=== PATIENT | female | born 1960 | race Caucasian/White ===

== ENCOUNTER 2023-12-24 12:23 | Outpatient (CLI) | payer MEDICARE, MEDICAID | END 2023-12-24 23:59 | disposition critical access hospital (66) | LOC: EMS 12:23 | DX: R07.89 Other chest pain (principal); R45.89 Other symptoms and signs involving emotional state; R03.0 Elevated blood-pressure reading, without diagnosis of hypertension | CPT/HCPCS: A0425; A0429 ==

== ENCOUNTER 2023-12-24 12:45 | Emergency (ER) | payer MEDICARE, MEDICAID ==
--- NOTE | 2023-12-24 13:18 | ED Physician Documentation ---
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 She is being moved to different apt so needs to pack, etc. Very anxious about it and developed some chst tightness and headache. Noted BP was elevated. She does not check it reguarly.) Quality: Pressure, Tightness Location: Substernal Radiation: No: Jaw, Neck Improved by: Rest Worsened by: No: Inspiration, Movement, Palpation Associated symptoms: Other (some frontal headache as well.) Similar symptoms before: No diagnosis (has headache at times when upset. No prior chest pressure.) PD PAST MEDICAL HISTORY - Past Medical History Past Medical History: Yes Cardiovascular: None Respiratory: None Neuro: None Endocrine/Autoimmune: None Psych: Depression, Anxiety, Bipolar disorder - Past Surgical History Past Surgical History: No - Present Medications Home Medications: Ambulatory Orders Medication Instructions Recorded Confirmed Carisoprodol [Soma] 350 mg PO TID 12/24/23 12/24/23 Ibuprofen [Motrin] 1 tablet PO Q8H 12/24/23 12/24/23 Losartan [Cozaar] 50 mg PO DAILY #30 tablet 12/24/23 Sertraline HCl 100 mg PO BID 12/24/23 12/24/23 Trazodone HCl 100 mg PO HS 12/24/23 12/24/23 lamoTRIgine [Lamictal Xr] 300 mg PO HS 12/24/23 12/24/23 oxyCODONE [Roxicodone] 5 mg PO QID 12/24/23 12/24/23 - Allergies Allergies/Adverse Reactions: Allergies Allergy/AdvReac Type Severity Reaction Status Date / Time erythromycin base Allergy Hives Verified 12/24/23 12:52 morphine AdvReac Nausea Verified 12/24/23 12:52 - Social History Does the pt smoke?: Yes Smoking Status: Light tobacco smoker Does the pt drink ETOH?: No Does the pt have substance abuse?: No - Immunizations Immunizations are current?: Yes PD ED PE NORMAL - Vitals Vital signs reviewed: Yes - General General: Alert and oriented X 3, No acute distress, Well developed/nourished - Cardiac Cardiac: RRR, No murmur - Respiratory Respiratory: No respiratory distress, Clear bilaterally - Abdomen Abdomen: Soft, Non tender - Derm Derm: Normal color, Warm and dry - Extremities Extremities: No edema, No calf tenderness / cord - Neuro Neuro: Alert and oriented X 3, 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 Relevant findings are: Rate: Rate (enter#) (62) Rhythm: NSR [place]: Normal Intervals: Normal [place] QRS: Normal Ischemia: Normal ST segments. No: ST elevation c/w ischemia, ST depression - Labs Labs: Laboratory Tests 12/24/23 12/24/23 14:38 14:38 WBC 5.5 RBC 3.76 L Hgb 11.0 L Hct 34.7 L MCV 92.3 MCH 29.3 MCHC 31.7 L RDW 13.2 Plt Count 262 MPV 9.1 Neut # (Auto) 3.5 Lymph # (Auto) 1.6 [place] # (Auto) 0.3 Eos # (Auto) 0.1 Baso # (Auto) 0.1 Absolute Nucleated RBC 0.00 Nucleated RBC % 0.0 Sodium 138 Potassium 3.8 Chloride 102 Carbon Dioxide 30 Anion Gap 6.0 BUN 13 Creatinine 0.8 Estimated GFR (MDRD) 72 L Glucose 88 Calcium 9.7 Magnesium 1.7 Total Bilirubin 0.3 AST 19 ALT 13 Alkaline Phosphatase 73 Troponin I High Sens 5.2 Total Protein 6.9 Albumin 4.3 Globulin 2.6 Albumin/Globulin Ratio 1.7 Lipase 11 PD Medical Decision Making - ED course Complexity details: re-evaluated patient (BP lowered to reasonable without intervention. But pt does not know what it gets to except at office visits. Given that it did elevate well due to stress, shared decison with pt to start mld dose BP med. Renal function and lytes are good on labs, so can start with losartan. ), considered differential (elevated blood pressure with some pressure headache and chest tightness related. Normal ECG and troponin. Does not take BP med and so not known trend. But did get elevated reasonably well. ), d/w patient Departure - Departure Disposition: 01 Home, Self Care Clinical Impression: Elevated blood pressure reading, Dyspnea, Headache Condition: Stable Record reviewed to determine appropriate education?: Yes Instructions: ED Hypertension New Begin Tx Follow-Up: KAMALA ROMANO DO [Physician No Access] - Prescriptions: Losartan [Cozaar] 50 mg PO DAILY #30 tablet Comments: Your EKG and blood test called troponin are normal without any signs of heart muscle injury/heart attack or heart failure. Your basic chemistry panel blood test show normal blood sugar, electrolytes, kidney function and your blood count is good as well. Your blood pressure was fairly elevated today. Hard to tell how much of that was related to situational stress. However even if so, that it can get that high it is worth treating and likely your symptoms of some of the shortness of breath and headache are related to the blood pressure being elevated. We try to not bring the blood pressure down quickly as that can cause more problems. However we do want her to come down gently through the afternoon and evening. We gave you a long acting daily blood pressure medicine to start on and I wrote a prescription for more. Check your blood pressure once or twice daily over the next week and trend what it is doing and write it down. Contact your primary care about this visit and see if they want a follow-up with. Forms: PCP List Discharge Date/Time: 12/24/23 16:26
[2023-12-24 14:44] LABS: BASOPHILS # (AUTO) 0.1 10^3/uL (0.0-0.1); BASOPHILS % (AUTO) 0.9 %; EOSINOPHILS # (AUTO) 0.1 10^3/uL (0.0-0.7); EOSINOPHILS % (AUTO) 1.5 %; HCT - HEMATOCRIT 34.7 % (37.0-47.0); LYMPHOCYTES # (AUTO) 1.6 10^3/uL (1.5-3.5); LYMPHOCYTES % (AUTO) 28.5 %; MEAN CORPUSCULAR HEMOGLOBIN 29.3 pg (27.0-31.0); MEAN CORPUSCULAR HGB CONC 31.7 g/dL (32.0-36.0); MEAN CORPUSCULAR VOLUME 92.3 fL (81.0-99.0); MEAN PLATELET VOLUME 9.1 fL (7.9-10.8); MONOCYTES # (AUTO) 0.3 10^3/uL (0.0-1.0); MONOCYTES % (AUTO) 5.8 %; NEUTROPHILS # (AUTO) 3.5 10^3/uL (1.5-6.6); NEUTROPHILS % (AUTO) 63.1 %; PLT - PLATELET COUNT 262 10^3/uL (130-450); RED BLOOD COUNT 3.76 10^6/uL (4.20-5.40); RED CELL DISTRIBUTION WIDTH 13.2 % (12.0-15.0); WHITE BLOOD COUNT 5.5 x10^3/uL (4.8-10.8)
[2023-12-24] MEDS: KETOROLAC 15 MG/ML VIAL IVP STA (14:55)
[2023-12-24 14:59] LABS: ALBUMIN 4.3 g/dL (3.2-5.5); ALBUMIN/GLOBULIN RATIO 1.7 (1.0-2.2); BILIRUBIN,TOTAL 0.3 mg/dL (0.2-1.0); CALCIUM 9.7 mg/dL (8.5-10.3); CREATININE 0.8 mg/dL (0.6-1.3); MAGNESIUM 1.7 mg/dL (1.7-2.3); POTASSIUM 3.8 mmol/L (3.5-4.5); TOTAL PROTEIN 6.9 g/dL (6.4-8.9)
[2023-12-24 15:05] LABS: TROPONIN I HIGH SENSITIVITY 5.2 ng/L (2.3-14.8)
[2023-12-24] MEDS: LOSARTAN 50 MG TABLET PO STA (16:15)
[2023-12-24 16:34] VITALS: BP 190/85; O2SAT 95
== END 2023-12-24 16:26 | disposition home or self-care (01) ==
LOC: EDUNIT# → ED 12:45
DX: R03.0 Elevated blood-pressure reading, without diagnosis of hypertension (principal); R06.00 Dyspnea, unspecified; R51.9 Headache, unspecified; Z59.89 Other problems related to housing and economic circumstances
CPT/HCPCS: 36415; 80053; 83690; 83735; 84484; 85025; 93005; 96374; 99283; 99284; A9270

== ENCOUNTER 2024-02-04 09:46 | Outpatient (CLI) | payer MEDICARE, MEDICAID | END 2024-02-04 23:59 | disposition critical access hospital (66) | LOC: EMS 09:46 | DX: R55 Syncope and collapse (principal); R61 Generalized hyperhidrosis; R42 Dizziness and giddiness; R51.9 Headache, unspecified; R06.02 Shortness of breath; R00.2 Palpitations; R11.0 Nausea | CPT/HCPCS: A0425; A0429 ==

== ENCOUNTER 2024-02-04 10:07 | Emergency (ER) | payer MEDICARE, MEDICAID ==
--- NOTE | 2024-02-04 10:13 | ED Physician Documentation ---
History of Present Illness - Stated complaint Stated Complaint: NEAR SYNCOPE - History obtained from History obtained from: Patient, EMS - Additonal information Additional information: 63-year-old woman with chronic recurrent near syncope. She was seen by my partner a little over a month ago with negative workup but did have hypertension at the time and was started on losartan which she continues on. In the interim she has had a Holter monitor, results are not yet known. She was walking her dog today and started to feel presyncopal and sweaty. There is no associated chest pain or significant trouble breathing. She laid down but did not pass out. There is no injury. She feels mostly better now. PD PAST MEDICAL HISTORY - Past Medical History Psych: Depression, Anxiety, Bipolar disorder - Past Surgical History Past Surgical History: No - Present Medications Home Medications: Ambulatory Orders Medication Instructions Recorded Confirmed Carisoprodol [Soma] 350 mg PO TID 12/24/23 02/04/24 Ibuprofen [Motrin] 1 tablet PO Q8H 12/24/23 02/04/24 Losartan [Cozaar] 50 mg PO DAILY #30 tablet 12/24/23 02/04/24 Sertraline HCl 100 mg PO BID 12/24/23 02/04/24 Trazodone HCl 100 mg PO HS 12/24/23 02/04/24 lamoTRIgine [Lamictal Xr] 300 mg PO HS 12/24/23 02/04/24 oxyCODONE [Roxicodone] 5 mg PO TID 12/24/23 02/04/24 - Allergies Allergies/Adverse Reactions: Allergies Allergy/AdvReac Type Severity Reaction Status Date / Time erythromycin base Allergy Hives Verified 02/04/24 10:21 morphine AdvReac Nausea Verified 02/04/24 10:21 - Social History Does the pt smoke?: Yes Smoking Status: Light tobacco smoker Does the pt drink ETOH?: No Does the pt have substance abuse?: No - Immunizations Immunizations are current?: Yes PD ED PE NORMAL - Vitals Vital signs reviewed: Yes - General General: Alert and oriented X 3, No acute distress - Neck Neck: Supple, no meningeal sign, No bony TTP - Cardiac Cardiac: RRR, No murmur - Respiratory Respiratory: No respiratory distress, Clear bilaterally - Abdomen Abdomen: Non tender - Extremities Extremities: No edema, No calf tenderness / cord - Neuro Neuro: Alert and oriented X 3, 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, Normal speech Eye Opening: Spontaneous Motor: Obeys Commands Verbal: Oriented GCS Score: 15 - Psych Psych: Normal mood, Normal affect Results - Vitals Vitals: Vital Signs - 24 hr 02/04/24 02/04/24 10:13 10:40 Temperature 35.9 C L Heart Rate 53 L Heart Rate [ 54 L Sitting] Heart Rate [ 56 L Standing] Heart Rate [ 52 L Supine] Respiratory 16 Rate Blood Pressure 139/91 H Blood Pressure 155/62 H [Sitting] Blood Pressure 131/65 H [Standing] Blood Pressure 122/60 [Supine] O2 Saturation 98 Oxygen O2 Source Room air - EKG (time done) 1017 EKG releavant findings:: EKG personally interpreted by author of this note. Relevant findings are: Rate: Rate (enter#) (51) Rhythm: NSR [place]: Normal Intervals: Normal [place] QRS: Normal Ischemia: Normal ST segments - Labs Labs: Laboratory Tests 02/04/24 02/04/24 10:30 10:30 WBC 5.3 RBC 4.10 L Hgb 12.0 Hct 38.1 MCV 92.9 MCH 29.3 MCHC 31.5 L RDW 12.9 Plt Count 237 MPV 9.3 Neut # (Auto) 3.8 Lymph # (Auto) 1.0 L [place] # (Auto) 0.3 Eos # (Auto) 0.1 Baso # (Auto) 0.0 Absolute Nucleated RBC 0.00 Nucleated RBC % 0.0 Sodium 131 L Potassium 4.2 Chloride 97 L Carbon Dioxide 28 Anion Gap 6.0 BUN 22 H Creatinine 0.8 Estimated GFR (MDRD) 72 L Glucose 93 Calcium 9.2 Total Bilirubin 0.4 AST 18 ALT 12 Alkaline Phosphatase 75 Total Protein 6.6 Albumin 4.0 Globulin 2.6 Albumin/Globulin Ratio 1.5 PD Medical Decision Making - ED course ED course: 63-year-old woman presents with recurrent presyncope. EKGs without significant abnormality and she had no ectopy, arrhythmias, or bradycardias of significance on the monitor. CBC relatively normal. CMP showing mild hyponatremia. Orthostatics were negative. She does have the Holter monitor pending, it is complete but results are not yet known, and advised to follow-up with her apprentice electrician for that. Departure - Departure Disposition: 01 Home, Self Care Clinical Impression: Near syncope Condition: Good Record reviewed to determine appropriate education?: Yes Instructions: ED Near Syncope Unkn Comments: You were seen today for recurrent dizzy episode and nothing significant was found except for a mildly low sodium level at 131. Otherwise her EKG, cardiac monitoring, orthostatic vital signs and other labs were unremarkable. You should follow-up with your apprentice electrician for further evaluation and treatment and for results of your recent cardiac monitoring. Return for new or worsening symptoms.
[2024-02-04 10:35] LABS: BASOPHILS % (AUTO) 0.8 %; EOSINOPHILS # (AUTO) 0.1 10^3/uL (0.0-0.7); EOSINOPHILS % (AUTO) 2.3 %; HCT - HEMATOCRIT 38.1 % (37.0-47.0); LYMPHOCYTES % (AUTO) 18.6 %; MEAN CORPUSCULAR HEMOGLOBIN 29.3 pg (27.0-31.0); MEAN CORPUSCULAR HGB CONC 31.5 g/dL (32.0-36.0); MEAN CORPUSCULAR VOLUME 92.9 fL (81.0-99.0); MEAN PLATELET VOLUME 9.3 fL (7.9-10.8); MONOCYTES # (AUTO) 0.3 10^3/uL (0.0-1.0); MONOCYTES % (AUTO) 6.1 %; NEUTROPHILS # (AUTO) 3.8 10^3/uL (1.5-6.6); PLT - PLATELET COUNT 237 10^3/uL (130-450); RED CELL DISTRIBUTION WIDTH 12.9 % (12.0-15.0); WHITE BLOOD COUNT 5.3 x10^3/uL (4.8-10.8)
[2024-02-04 10:47] LABS: ALBUMIN/GLOBULIN RATIO 1.5 (1.0-2.2); BILIRUBIN,TOTAL 0.4 mg/dL (0.2-1.0); CALCIUM 9.2 mg/dL (8.5-10.3); CREATININE 0.8 mg/dL (0.6-1.3); POTASSIUM 4.2 mmol/L (3.5-4.5); TOTAL PROTEIN 6.6 g/dL (6.4-8.9)
[2024-02-04 11:21] VITALS: BP 150/70; O2SAT 99
== END 2024-02-04 11:12 | disposition home or self-care (01) ==
LOC: EDBD → ED 10:07
DX: R55 Syncope and collapse (principal); E87.1 Hypo-osmolality and hyponatremia; F17.200 Nicotine dependence, unspecified, uncomplicated; Z79.899 Other long term (current) drug therapy
CPT/HCPCS: 36415; 80053; 85025; 93005; 99283; 99284